=== PATIENT | male | born 1975 | race Caucasian/White ===

== ENCOUNTER 2020-02-11 09:00 | Emergency (ER) | payer BC, OTHER, SELFPAY ==
--- NOTE | ~2020-02-11 | US_ITS ---
US scrotum doppler DATE: 02/11/2020 09:55 INDICATION: Left scrotal pain and swelling TECHNIQUE: Real-time and color flow imaging and Doppler analysis of the scrotal contents COMPARISON: None FINDINGS: The right testicle measures 4.8 x 2.2 x 2.9 cm. The left testicle measures 4.7 x 2.1 x 3.4 cm. No testicular mass lesion or torsion is evident. The testicular echotexture is homogeneous and sy mmetric. There is swelling and increased echogenicity of the left epididymis suggesting left epididymitis. Sma ll hydroceles. No varicocele is evident. IMPRESSION: Soft tissue swelling and increased echogenicity of the left epididymis, suggesting left e pididymitis Reviewed, dictated and finalized at [facility]. Reviewed, dictated and finalized at [facility]. IMPRESSION: Soft tissue swelling and increased echogenicity of the left epididy mis, suggesting left epididymitis
--- NOTE | 2020-02-11 09:01 | ED.ABDPAIN ---
HPI - Abdominal Pain General Chief Complaint: Urogenital-Male Stated Complaint: swollen testicle Time Seen by Provider: 02/11/20 09:00 Source: patient Mode of arrival: ambulatory Limitations: no limitations History of Present Illness HPI narrative: Patient is a 44-year-old male who presents for evaluation of left testicular swelling and pain. Patient reports a 2-day history of testicular pain and swelling. No redness. No painful urination, hematuria, hesitancy or frequency. No back pain. Patient does report some pulling sensation in the left lower quadrant. No history of trauma to the testicle. Patient does have a history of hernia repair as a child on the left side. No recent heavy lifting. Patient had a vasectomy 4 years ago as well, denies other surgeries. Related Data Allergies Allergy/AdvReac Type Severity Reaction Status Date / Time No Known Allergies Allergy Unknown Uncoded 02/11/20 09:07 Review of Systems Review of Systems: Narrative: CONSTITUTIONAL: Denies fever CARDIOVASCULAR: Denies chest pain RESPIRATORY: Denies cough or dyspnea. GASTROINTESTINAL: Mild left lower quadrant abdominal pain : Denies dysuria, hematuria, reports testicular pain and swelling of the left SKIN: Denies rash MUSCULOSKELETAL: Denies back pain NEUROLOGIC: Denies headache [facility] Surgical History Surgical History (Updated 02/11/20 @ 09:23 by Alice Arias MD) H/O hernia repair H/O vasectomy Social History Social History (Updated 02/11/20 @ 09:24 by Alice Arias MD) Smoking status: Never smoker Alcohol intake: current Substance use: never Living arrangements: with family Gender identity (if verbalized by the patient): Male Exam Narrative: Exam Narrative: GENERAL: Awake, alert, conversant HEAD: Normocephalic, atraumatic. EYES: PERRLA and EOMI. ENT: Nares clear, no rhinorrhea or epistaxis. Mucous membranes moist. NECK: Supple. CHEST: No respiratory distress, breathing even and non labored HEART: Regular rate, sinus rhythm ABDOMEN:Non distended, non tender : Right testicle is nontender, no edema or erythema. Left testicle is mildly tender to palpation, edematous. Possible mass appreciated. No hernia palpated. Penis is circumcised without discharge of the glans. No lesions. No inguinal lymphadenopathy. EXTREMITIES: Normal range of motion. No edema. SKIN: Warm, dry, no rash. NEURO:No focal deficits. Alert and oriented x3 Course Vital Signs Vital signs: Vital Signs Temperature 36.8 C 02/11/20 09:02 Pulse Rate 66 02/11/20 09:02 Respiratory Rate 18 02/11/20 09:02 Blood Pressure 183/113 H 02/11/20 09:02 Pulse Oximetry 98 02/11/20 09:02 Temperature 36.8 C 02/11/20 09:02 Pulse Rate 66 02/11/20 09:02 Respiratory Rate 18 02/11/20 09:02 Blood Pressure 183/113 H 02/11/20 09:02 Pulse Oximetry 98 02/11/20 09:02 MDM - Abdominal Pain MDM Narrative Medical decision making narrative: Patient presented for evaluation of left testicular swelling and pain. At the time of initial assessment, ABCs are intact and vital signs are stable. Patient has hypertension, and has no formal diagnosis of this. Laboratory results show no leukocytosis. No acute kidney injury. No UTI. Ultrasound is concerning for epididymitis. No sign of torsion. Patient will be given antibiotic, was advised to follow-up with his primary care provider regarding his hypertension and epididymitis, and patient already has a urologist that he is seen. Patient advised return if symptoms change, or worsen and are not improving. As for the hypertension, patient was educated on seeing a primary care provider, having regular medical screening exams. As patient is asymptomatic, we will not treat at this point. Patient was then discharged home. Differential Diagnosis Differential diagnosis: Likely abdominal pain, gastroenteritis and other (Testicular torsion, epididymitis, hernia) Lab Data Attestation: I reviewed
[2020-02-11 09:02] VITALS: BP 183/113; PULSE 66; RESP 18; TEMP 36.8; O2SAT 98
[2020-02-11 09:38] LABS: Add Urine Microscopic? NO; Appearance Urine Clear (Clear); Bilirubin Urine Negative (Negative); Blood Urine Negative (Negative); Color Urine Yellow (Yellow); Glucose Urine UA Negative (Negative); Ketones Urine Negative (Negative); Leukocyte Esterase Ur Negative LEU/UL (Negative); Nitrate Urine Negative (Negative); Protein Urine Negative (Negative); Specific Grav Ur 1.014 (1.001-1.035); Urobilinogen Urine Negative mg/dL (<2.0)
[2020-02-11 10:00] LABS: Basophils Absolute Auto 0.1 K/mm3 (0.0-0.1); Eosinophils Absolute Auto 0.1 K/mm3 (0-0.3); Eosinophils Percent Auto 2.4 % (0-4.4); Hematocrit 46.6 % (42.0-52.0); Hemoglobin 16.3 g/dL (14.0-18.0); Immature Granulocyte Absolute 0.02 K/mm3 (0.00-0.031); Immature Granulocyte Percent A 0.3 % (0-0.5); Lymphocytes Absolute Auto 1.75 K/mm3 (0.9-3.2); Lymphocytes Percent Auto 29.6 % (18.3-44.2); Mean Corpuscular Hemoglobin 30.9 pg (26-34); Mean Corpuscular Volume 88.3 fl (80-100); Mean Platelet Volume 10.4 fl (7.4-10.4); Monocytes Absolute Auto 0.5 K/mm3 (0.1-0.6); Monocytes Percent Auto 8.8 % (2.6-8.5); Neutrophils Absolute Auto 3.4 K/mm3 (1.3-6.7); Neutrophils Percent Auto 57.9 % (45.5-73.1); Platelet Count Result 321 k/mm3 (150-375); Red Blood Count 5.28 M/mm3 (4.6-6.20); Red Cell Distribution Width 12.9 % (11.5-14.5); White Blood Count 5.9 K/mm3 (4.5-10.0)
[2020-02-11 10:12] LABS: Blood Urea Nitrogen 12 mg/dL (9-20); Calcium 9.6 mg/dL (8.4-10.2); Carbon Dioxide 29 mmol/L (22-30); Chloride 105 mmol/L (98-107); Estimated CRCL calculation 96 ml/min; Estimated Glomerular Filt Rate > 60; Glucose 101 mg/dL (75-110); Potassium 4.2 mmol/L (3.4-5.0); Sodium 139 mmol/L (137-145)
== END 2020-02-11 10:35 | disposition home or self-care (01) ==
PROVIDERS: Emergency Provider Emergency Medicine
DX: N45.1 Epididymitis (principal)
CPT/HCPCS: 36415; 76870; 80048; 81003; 85025; 87491; 87591; 93976; 99284